=== PATIENT | male | born 1995 | race Caucasian/White ===

== ENCOUNTER 2020-08-20 12:00 | Emergency (ER) | payer OTHER, MEDICAID, SELFPAY ==
[2020-08-20 12:08] VITALS: BP 112/66; PULSE 78; RESP 16; TEMP 36.8; O2SAT 99
[2020-08-20 15:16] LABS: Add Urine Microscopic? YES; Amorphous Sediment Urine Few; Appearance Urine Clear (Clear); Bacteria Urine Trace /hpf; Bilirubin Urine Negative (Negative); Blood Urine Negative (Negative); Color Urine Yellow (Yellow); Glucose Urine UA Negative (Negative); Ketones Urine Negative (Negative); Leukocyte Esterase Ur Negative LEU/UL (Negative); Mucus Urine Rare /lpf; Nitrate Urine Negative (Negative); Protein Urine 1+ mg/dL (Negative); RBC Urine 0-2 /hpf (0-2); Specific Grav Ur 1.023 (1.001-1.035); Squamous Epithelial Cell Urine Rare /hpf (Few); WBC Urine 0-3 /hpf
--- NOTE | 2020-08-20 15:31 | ED.MALEGU ---
HPI - Male Genitourinary General Chief complaint: Urogenital-Male Stated complaint: STD check Time Seen by Provider: 08/20/20 14:57 Source: patient Mode of arrival: ambulatory Limitations: no limitations History of Present Illness HPI Narrative: Patient is a 24-year-old male who presents requesting STD testing. He denies penile discharge or urinary complaints at this time. He denies known exposure. He has no significant medical history. He denies other complaints at this time. MD Complaint: possible STD exposure and other Review of Systems Review of Systems: Narrative: CONSTITUTIONAL: Denies fever, chills, or sweats. EYES: Denies visual changes, redness, or discharge. ENT: Denies rhinorrhea, congestion, sore throat, or otalgia. CARDIOVASCULAR: Denies chest pain, palpitations, or edema. RESPIRATORY: Denies cough or dyspnea. GASTROINTESTINAL: Denies abdominal pain, nausea, vomiting, or diarrhea. GENITOURINARY: Denies dysuria or hematuria. SKIN: Denies rash or itching. MUSCULOSKELETAL: Denies back pain, joint pain, or myalgia. NEUROLOGIC: Denies headache, numbness, dizziness, or weakness. PSYCHIATRIC: Denies anxiety or depression. [facility] Social History Social History (Updated 08/20/20 @ 15:32 by LUCI Jalloh) Smoking status: Current every day smoker Alcohol intake: current Alcohol use details: Socially Substance use: current Substance use type: marijuana Living arrangements: with friend(s) Gender identity (if verbalized by the patient): Male Exam Narrative: Exam Narrative: GENERAL: Well-appearing, well-nourished, and in no acute distress. HEAD: Normocephalic, atraumatic. EYES: EOMI. No redness or drainage. Conjunctiva are normal. ENT: Mucous membranes pink and moist. CHEST: No respiratory distress. Clear to auscultation. HEART: Regular rate and rhythm. GI: Soft, nontender without rebound, or guarding. EXTREMITIES: Normal range of motion. No edema. SKIN: Warm, dry, no rash. NEURO: No focal deficits. Alert and oriented x3. Gait steady. PSYCH: Normal affect. No signs of depression or anxiety. Course Vital Signs Vital signs: Vital Signs Temperature 36.8 C 08/20/20 12:08 Pulse Rate 78 08/20/20 12:08 Respiratory Rate 16 08/20/20 12:08 Blood Pressure 112/66 08/20/20 12:08 Pulse Oximetry 99 08/20/20 12:08 Temperature 36.8 C 08/20/20 12:08 Pulse Rate 78 08/20/20 12:08 Respiratory Rate 16 08/20/20 12:08 Blood Pressure 112/66 08/20/20 12:08 Pulse Oximetry 99 08/20/20 12:08 Reviewed MDM - Male Genitourinary MDM Narrative Medical decision making narrative: Patient's urine sent for STD testing. Patient refuses prophylactic treatment at this time. Patient aware that we will contact him with results. Patient is stable for discharge home with outpatient follow-up as needed. Differential Diagnosis Differential diagnosis: Likely urinary tract infection, urethritis, epididymitis and other (Trichomonas, chlamydia, gonorrhea) Lab Data Labs: Lab Results 08/20/20 Range/Units 14:59 Urine Color Yellow (Yellow) Urine Appearance Clear (Clear) Urine pH 8.0 (5.0-9.0) Ur Specific [place] 1.023 (1.001-1.035) Urine Protein 1+ H (Negative) mg/dL Urine Glucose (UA) Negative (Negative) mg/dL Urine Ketones Negative (Negative) mg/dL Ur Blood (Man) Negative (Negative) Urine Nitrate Negative (Negative) Urine Bilirubin Negative (Negative) Urine Urobilinogen 2.0 H (<2.0) mg/dL Leukocyte Esterase Rfl Negative (Negative) MAINOR/UL Urine RBC 0-2 (0-2) /hpf Urine WBC 0-3 /hpf Ur Squamous Epith Cells Rare (Few) /hpf Amorphous Sediment Few H (None) Urine Bacteria Trace /hpf Urine Mucus Rare /lpf Reviewed Critical Care Time Critical Care Time Critical Care Time: No Discharge Plan Discharge Clinical Impression: Possible exposure to STD Patient Disposition: Home, Self-Care Condition: Stable Instructions: Safe S
== END 2020-08-20 15:59 | disposition home or self-care (01) ==
PROVIDERS: Emergency Medicine; Emergency Provider Nurse Practitioner
DX: Z11.3 Encounter for screening for infections with a predominantly sexual mode of transmission (principal); F17.200 Nicotine dependence, unspecified, uncomplicated
CPT/HCPCS: 81001; 87491; 87591; 99283